=== PATIENT | female | born 1995 | race Caucasian/White ===

== ENCOUNTER 2018-04-25 20:49 | Inpatient (IN) ==
[2018-04-26 00:27] LABS: BASO# 0.05 X1000 (0.0-0.2); BASO% 0.5 % (0.0-0.8); EOS# 0.21 X1000 (0.0-0.7); EOS% 2.1 % (0.0-10.0); HEMATOCRIT 37.2 % (37.0-47.0); HEMOGLOBIN 12.1 g/dL (12.0-16.0); IMM GRAN# 0.02 X1000 (0.0-0.04); IMM GRAN% 0.2 % (0.0-0.5); LYMPH# 3.38 X1000 (1.2-3.4); MCH 27.7 PG (27-31); MCHC 32.5 g/dL (33-37); MCV 85.1 FL (81-99); MONO# 0.42 X1000 (0.11-0.59); MONO% 4.2 % (1.7-9.3); MPV 8.7 FL (7.4-10.4); NEUT# 5.86 X1000 (1.4-6.5); PLT 336 X1000 (130-400); RBC 4.37 XMIL (4.2-5.4); RDW 14.1 % (11.5-14.5); WBC 9.94 X1000 (4.8-10.8)
[2018-04-26 00:31] LABS: INR 0.9; PROTIME 12.9 Seconds (11.0-16.0)
[2018-04-26 00:32] LABS: PTT 29.1 Seconds (22.3-41.8)
[2018-04-26 00:41] LABS: AGAP 13; ALB/GLOB RATIO 2.1; ALBUMIN 4.6 g/dL (3.5-5.0); ALKALINE PHOSPHATASE 57 U/L (32-104); BUN 17 mg/dL (8-22); CALCIUM 9.5 mg/dL (8.8-10.2); CHLORIDE 105 mmol/L (98-107); COSMO 286; CREATININE 0.8 mg/dL (0.5-0.9); ESTIMATED GFR > 60; GLUCOSE 84 mg/dL (70-104); GOT 20 U/L (10-30); GPT 27 U/L (10-36); POTASSIUM 3.8 mmol/L (3.5-5.1); SODIUM 143 mmol/L (136-145); TCO2 25 mmol/L (25-35); TOTAL PROTEIN 6.8 g/dL (6.3-8.3)
--- NOTE | 2018-04-26 01:39 | PROVIDER DOCUMENTATION ---
This chart was entered by Erma Ruano Scribe, acting as scribe for Rodríguez Chen MD. HPI-Abdominal Pain/GI Problem - General Source: patient - History of Present Illness-ABD Nature of Presenting Problems: Pt is 22/F presenting to ED w/ abd pain. She has swallowed 3 foreign objects this week. On Thursday she swallowed a metal bracelet, on Thursday she swallowed 2 batteries. She has not passed them as of today. She has been to the ED at [facility] and was told to use magnesium citrate. She has had several bowel movements w/ no passing of the objects. Pt has hx of bipolar and personality disorder. Lives in half-way. Abdominal Pain Onset Location: reports: generalized abdomen Pain Radiation: reports: no radiation Quality of Pain: reports: aching Severity in ED: reports: moderate Onset/Duration: reports: 1 week ago Timing: reports: still present, getting worse Activities at Onset: reports: none Exposure to sick contacts?: No Modifying Factors: improves with: nothing Associated Symptoms: denies: diarrhea, nausea, syncope, vomiting Last BM: this morning Dark Stools Present?: reports: none noticed Rectal Bleeding: reports: none <Rodríguez Chen - Last Filed: 04/26/18 01:39> <Prashanth Gregg - Last Filed: 04/26/18 04:55> - General Chief Complaint: Foreign Body Stated Complaint: SWALLOWED FOREIGN OBJECTS 1 WK AGO. Time Seen by Provider: 04/25/18 22:39 Allergies/Adverse Reactions: Patient Allergies Allergy/AdvReac Type Severity Reaction Status Date / Time No Known Allergies Allergy Verified 04/22/18 17:01 Home Medications: Home Medication List Medication Instructions Recorded Confirmed Last Taken Type Clonidine HCl 0.1 mg PO DAILY #0 09/20/15 03/07/18 06/26/16 Rx Clonidine HCl 0.2 mg PO HS #0 09/20/15 03/07/18 06/26/16 Rx Metformin HCl 500 mg PO BID #0 09/20/15 03/07/18 06/26/16 Rx Blackwell Carbonate 1 tab PO BID 06/26/16 03/07/18 06/26/16 History Sertraline [Zoloft] 150 mg PO DAILY 06/26/16 03/07/18 06/26/16 History ATORVAstatin [Lipitor] 10 mg PO HS 06/30/17 03/07/18 Unknown History Oxcarbazepine 300 mg PO TID 06/30/17 03/07/18 Unknown History Trazodone [Desyrel] 300 mg PO HS 06/30/17 03/07/18 Unknown History Aripiprazole Lauroxil [Aristada] 662 mg IM DIRECTED 12/29/17 03/07/18 Unknown History Cholecalciferol (Vitamin D3) 5,000 units PO DAILY 12/29/17 03/07/18 Unknown History [Vitamin D3] Medroxyprogesterone Acetate 150 mg IM DIRECTED 12/29/17 03/07/18 Unknown History [Depo-Provera] Sulfamethoxazole/Trimethoprim 1 each PO BID #10 tablet 04/10/18 Unknown Rx [Bactrim Ds Tablet] Docusate Sodium [Colace] 100 mg PO DAILY #30 cap 04/22/18 Unknown Rx Magnesium Citrate [Citrate of 300 ml PO ONCE #1 bottle 04/22/18 Unknown Rx Magnesia] Review of Systems - Adult - REVIEW OF SYSTEMS - ADULT Constitutional: reports: no symptoms reported. denies: chills, fever Eyes: reports: no symptoms reported Ears, Nose, Mouth & Throat: reports: no symptoms reported Cardiovascular: reports: no symptoms reported Respiratory: reports: no symptoms reported Gastrointestinal: reports: abdominal pain. denies: diarrhea, nausea, vomiting Genitourinary: reports: no symptoms reported Musculoskeletal: reports: no symptoms reported Integumentary: reports: no symptoms reported Neurological: reports: no symptoms reported. denies: dizziness/vertigo, headache/migraines Psychiatric: reports: emotional problems, other (bipolar and personality disorders) Endocrine: reports: no symptoms reported Hematologic/Lymphatic: reports: no symptoms reported Allergic/Immunologic: reports: no symptoms reported All Other Systems: Reviewed and Negative <Rodríguez Chen - Last Filed: 04/26/18 01:39> Past History - Adult - PAST MEDICAL HISTORY-ADULT Review of Records: reports: Old Records Reviewed, Nursing Assessment Review, Medications Reviewed, Social history reviewed & non-contributory. Major Childhood Illnesses: reports: denies history Cardiovascular: reports: denies history Respiratory: reports: denies history Gastrointestinal: reports: denies history Obstetrical/Gynecological: reports: other (PCOS) Genitourinary: reports: denies history Musculoskeletal: reports: denies history Neurological: reports: Seizures/Epilepsy Psychiatric: reports: psychiatric problems Endocrine/Immune: reports: denies history, other (PKD) Other Conditions: reports: denies history - PRIOR SURGERIES/PROCEDURES Surgical/Procedure History: reports: other (polycystic) - IMMUNIZATION STATUS Childhood Immunizations: See Nurse Assessment Flu Vaccine: See Nurse Assessment - FAMILY HISTORY Family History: reviewed, not pertinent - SOCIAL HISTORY Smoking: denies, non-smoker Substance Use: none/never Alcohol Use Frequency: never Living Situation: group <Rodríguez Chen. - Last Filed: 04/26/18 01:39> Physical Exam-General - PHYSICAL EXAM-ADULT Initial Vital Signs Reviewed: Yes - CONSTITUTIONAL General Appearance: appears well, alert, mild distress - EYES Eyes: PERRL/EOMI - HEAD, EARS, NOSE, MOUTH & THROAT HENMT: normocephalic/atraumatic, moist mucous membranes - NECK Neck: non-tender, full range of motion, supple, normal inspection - RESPIRATORY Respiratory: chest non-tender, lungs clear, normal breath sounds - CARDIOVASCULAR Cardiovascular: regular rate, rhythm - GASTROINTESTINAL (ABDOMEN) Abdominal Exam: normal bowel sounds, soft, tenderness (mild diffuse) - LYMPHATIC Lymphatic: no adenopathy - MUSCULOSKELETAL Extremity: normal range of motion, non-tender, normal gait - SKIN Integumentary: normal color, warm/dry - NEUROLOGIC Neurologic: grossly normal <Roel Chenatilio Oliver. - Last Filed: 04/26/18 01:39> Progress - PLAN OF CARE/RESULTS Progress/Plan/Lab Results: Vital Signs - 8 hr 04/25/18 20:52 04/25/18 22:50 Temperature 98.1 F Pulse Rate 96 H 85 Respiratory Rate 18 20 Blood Pressure 131/79 111/76 O2 Sat by Pulse Oximetry 98 97 Orders Category Date Time Status KUB ABDOMEN [RAD] Stat Exams 04/25/18 22:58 Taken CBC WITH ELECTRONIC DIFF [HEME] Stat Lab 04/25/18 23:09 Uncollected COMPREHENSIVE METABOLIC PANEL [CHEM] Stat Lab 04/25/18 23:09 Uncollected LACTATE, PLASMA [CHEM] Stat Lab 04/25/18 23:09 Uncollected PT [PROTIME WITH INR] [COAG] Stat Lab 04/25/18 23:09 Uncollected PTT [COAG] Stat Lab 04/25/18 23:09 Uncollected Result Diagrams: 04/26/18 00:05 04/26/18 00:05 - XRAY 1 XRAY Study: Abdomen Impression: Abnormal (radio opacity suggestive of 1 battery and bracelet in place; second battery no longer present as compared to latest xray) Comparison with other Films: changes noted - CONSULTS/PCP/HOSPITALIST Notification #1 *Consult/PCP/Hospitalist*: Dr. Rubio Time Discussed: 01:00 Consult Disposition: other (do ct of abdomen with IV and oral contrast) - CHANGE OF SHIFT REPORT (ED Provider) Report Given and Care Transferred to:: Dr. Gregg Time of Transfer: 02:00 Items Pending: CT/MRI Results (discuss results with Dr. Rubio) <Rodríguez Chen - Last Filed: 04/26/18 01:39> - PLAN OF CARE/RESULTS Progress/Plan/Lab Results: Vital Signs - 8 hr 04/25/18 22:50 04/26/18 00:37 04/26/18 02:27 Temperature 98.1 F Pulse Rate 85 88 86 Respiratory Rate 20 16 18 Blood Pressure 111/76 109/60 109/60 O2 Sat by Pulse Oximetry 97 96 94 L Laboratory Results - last 24 hr 04/26/18 04/26/18 04/26/18 00:05 00:05 00:05 WBC 9.94 RBC 4.37 Hgb 12.1 Hct 37.2 MCV 85.1 MCH 27.7 MCHC 32.5 L RDW Std Deviation 14.1 Plt Count 336 MPV 8.7 Immature Gran % (Auto) 0.2 Neut % (Auto) 59.0 Lymph % (Auto) 34.0 [place] % (Auto) 4.2 Eos % (Auto) 2.1 Baso % (Auto) 0.5 Immature Gran # (Auto) 0.02 Neut # (Auto) 5.86 Lymph # (Auto) 3.38 [place] # (Auto) 0.42 Eos # (Auto) 0.21 Baso # (Auto) 0.05 PT INR PTT (Actin FS) Sodium 143 Potassium 3.8 Chloride 105 Carbon Dioxide 25 Anion Gap 13 BUN 17 Creatinine 0.8 Estimated GFR/1.73 m2 > 60 BUN/Creatinine Ratio 21 Glucose 84 Calculated Osmolality 286 Calcium 9.5 Total Bilirubin 0.20 AST 20 ALT 27 Alkaline Phosphatase 57 Total Protein 6.8 Albumin 4.6 Globulin 2.2 Albumin/Globulin Ratio 2.1 Plasma Lactate 2.0 Serum , Qual 04/26/18 04/26/18 00:05 00:05 WBC RBC Hgb Hct MCV MCH MCHC RDW Std Deviation Plt Count MPV Immature Gran % (Auto) Neut % (Auto) Lymph % (Auto) [place] % (Auto) Eos % (Auto) Baso % (Auto) Immature Gran # (Auto) Neut # (Auto) Lymph # (Auto) [place] # (Auto) Eos # (Auto) Baso # (Auto) PT 12.9 INR 0.90 PTT (Actin FS) 29.1 Sodium Potassium Chloride Carbon Dioxide Anion Gap BUN Creatinine Estimated GFR/1.73 m2 BUN/Creatinine Ratio Glucose Calculated Osmolality Calcium Total Bilirubin AST ALT Alkaline Phosphatase Total Protein Albumin Globulin Albumin/Globulin Ratio Plasma Lactate Serum , Qual NEGATIVE Orders Category Date Time Status CT ABD/PELVIS W/PO AND IV CON [CT] Stat Exams 04/26/18 00:50 Taken KUB ABDOMEN [RAD] Stat Exams 04/25/18 22:58 Taken CBC WITH ELECTRONIC DIFF [HEME] Stat Lab 04/26/18 00:05 Completed COMPREHENSIVE METABOLIC PANEL [CHEM] Stat Lab 04/26/18 00:05 Completed LACTATE, PLASMA [CHEM] Stat Lab 04/26/18 00:05 Completed TEST-SERUM [PREG] Stat Lab 04/26/18 00:05 Completed PT [PROTIME WITH INR] [COAG] Stat Lab 04/26/18 00:05 Completed PTT [COAG] Stat Lab 04/26/18 00:05 Completed Result Diagrams: 04/26/18 00:05 04/26/18 00:05 - CT/MRI 1 CT Study: Abdomen Impression: Abnormal CT Results: Battery and chain noted in bowel. No other acute finding. - CONSULTS/PCP/HOSPITALIST Notification #2 Consult: Dr Rubio Time Discussed: 04:54 Reason/Comments: asked hospitalist to admit Consult Disposition: Admit #3 Consult: Dr Rodney Hull Discussed: 04:54 Consult Disposition: Will see in ED, Admit <Prashanth Gregg - Last Filed: 04/26/18 04:55> Departure <Rodríguez Chen - Last Filed: 04/26/18 01:39> - Departure Date of Disposition Decision: 04/26/18 Time of Disposition Decision: 04:54 Certified Medical Emergency: Emergent - Critical Care Note This patient required my direct & personal management of CC.: No <Prashanth Gregg - Last Filed: 04/26/18 04:55> - Departure DIAGNOSIS: Foreign body alimentary tract, Foreign body ingestion, Intentional ingestion of batteries Disposition: ADMITTED INPATIENT 09 Condition: Fair Referrals and Follow-Ups: Ivet Contreras CRNP [Primary Care Provider] - Attestation - Physician/ KENDRICK Attestation Patient care was provided by Advanced Practice Provider:: No The physician spent face to face time with patient:: Yes Advanced Practice Provider documentation review:: Supervising physician onsite and consulted in the evaluation and care of this patient. The physician did have a face to face encounter with the patient. <Rodríguez Chen - Last Filed: 04/26/18 01:39> - Physician/ KENDRICK Attestation Patient care was provided by Advanced Practice Provider:: No The physician spent face to face time with patient:: Yes Advanced Practice Provider documentation review:: Supervising physician onsite and consulted in the evaluation and care of this patient. The physician did have a face to face encounter with the patient. <Prashanth Gregg - Last Filed: 04/26/18 04:55> This chart was documented by the indicated scribe, (Erma Ruano Scribe) and accurately reflects the services I performed and decisions made by Gustavo gould Kofi X., MD, as attested by the provider's signature.
[2018-04-26] MEDS ORDERED: ZOFRAN IV PRN (05:50)
[2018-04-26] MEDS ORDERED: SODIUM CHLORIDE 0.9% INJ SCH (05:50)
--- NOTE | 2018-04-26 05:56 | HISTORY AND PHYSICAL ---
PRIMARY CARE PROVIDER: Ivet Contreras. CHIEF COMPLAINT: Swallowed batteries. HISTORY OF PRESENTING ILLNESS: A 22-year-old female with a history of bipolar disorder, hypertension, and polycystic ovarian syndrome who apparently lives at a retirement. States that she got upset with some things and then she decided to swallow batteries and a bracelet or so. She states that she was not suicidal. She just got impulsive and did these things. She states that this occurred about 5 days ago and she did not recall that she passed the batteries in her stools. Her case was discussed with general surgery who recommended the patient be admitted for further evaluation and management. At the time of my examination, she complained of abdominal pain but denied any headache, fever, chills, chest pain, shortness of breath, or any weight changes. PAST MEDICAL HISTORY: Includes hypertension, polycystic ovarian syndrome, bipolar disorder. PAST SURGICAL HISTORY: None. ALLERGIES: No known drug allergies. CURRENT MEDICATIONS: Include atorvastatin 10 mg p.o. daily, sertraline 40 mg p.o. daily, lithium 300 mg p.o. b.i.d., clonidine 0.1 mg p.o. daily, trazodone 100 mg p.o. daily, SOCIAL HISTORY: She denies any history of smoking, alcohol, or illicit drug use. FAMILY HISTORY: No history of coronary artery disease. REVIEW OF SYSTEMS: Fourteen point review of systems listed as in the HPI. Other systems negative. PHYSICAL EXAMINATION: GENERAL: Cooperative, friendly female. She is resting comfortably now. VITAL SIGNS: Temperature 98.1 degrees, pulse 88, respirations 16, blood pressure 109/60. HEENT: Atraumatic, normocephalic. Extraocular movements intact. PERRLA. NECK: No masses. CHEST: Clear to auscultation. CARDIOVASCULAR: Regular rate and rhythm. ABDOMEN: Soft. Diffuse tenderness. EXTREMITIES: No edema. NEUROLOGIC: She is awake, alert, oriented x3. : No bladder distention. SKIN: Warm. LABORATORIES AND STUDIES: WBCs 9.94, hemoglobin 12.1, hematocrit 37.2, platelets 336,000. Sodium 143, potassium 3.8, chloride 105, CO2 is 25, BUN is 17, creatinine 0.8, glucose is 84. ASSESSMENT: This is a 22-year-old female with a history of bipolar disorder and hypertension who apparently got upset with some issues at her retirement and swallowed some batteries and a bracelet or so. She was evaluated in the emergency department. The case was discussed with general surgery who recommended she be admitted for further management. 1. Foreign body ingestion. 2. Bipolar disorder. 3. Hypertension. 4. Hyperlipidemia. PLAN: 1. We will admit the patient to the medical floor with telemetry. 2. We will keep the patient NPO. 3. We will consult general surgery. 4. We will continue supportive treatment with gentle hydration and antiemetics as needed. 5. One she is stable, we will restart her home medications. 6. We will continue to follow and reassess, and make further recommendation based on patient's clinical course. cc: Car Stevens MD MTDD
--- NOTE | 2018-04-26 06:39 | Diag Imaging Result Doc PS360 ---
CT ABD/PELVIS W/PO AND IV CON - 04/26/2018 INDICATION: abdominal pain; foreign body ingestion COMPARISON: 04/10/2018 FINDINGS: The lung bases are clear and the heart size is normal. Stable polycystic kidneys. There is a new radiodense object in the region of the cecum. This appears to be a battery. This measures about 4 cm in length. There is also an irregular metallic object in the cecum as well. This is probably something like a metallic chain. This measures about 4 cm as well. No bowel obstruction or free air. Trace pelvic free fluid is stable from prior. IMPRESSION: There are two new radiodense ingested foreign bodies in the cecum. No obstruction or perforation. This exam was performed using automated exposure control, adjustment of mA or kV according to patient size, and/or use of iterative reconstruction technique Electronically signed by Anthony Houser 04/26/2018 6:37 AM
[2018-04-26] MEDS: PROTONIX IV SCH (06:45)
[2018-04-26] MEDS: NS 1,000 ML IV SCH ×3 (06:48→22:30)
--- NOTE | 2018-04-26 07:55 | Diag Imaging Result Doc PS360 ---
EXAM: KUB ABDOMEN HISTORY: abominal pain; foreign body ingestion follow up TECHNIQUE: Abdomen single view COMPARISON: 04/22/2018 FINDINGS: There are two foreign bodies overlying the right lower quadrant. appears to be a neck less and the other may be a battery. These are likely in the cecum and ascending colon. Previously there was a foreign body in the mid left abdomen. This one is no longer present. IMPRESSION: Two foreign bodies remain in the proximal colon. Electronically signed by Dick Sebastian 04/26/2018 7:53 AM
[2018-04-26] MEDS: MIRALAX PO SCH ×3 (10:58→20:20)
--- NOTE | 2018-04-26 12:11 | GASTROENTEROLOGY CONSULTATION ---
DATE: 04/26/2018 REFERRING PHYSICIAN: Dr. Alex Fernández. PRIMARY CARE NURSE PRACTITIONER: BRADY James REASON FOR CONSULTATION: Swallowed batteries. HISTORY: Ms. Bah is a 22-year-old female who was admitted on 04/25/2018 for history of swallowing batteries. According to the patient, she swallowed 2 AA batteries and a necklace last Thursday and Thursday. She has history of bipolar disorder, hypertension, polycystic ovarian disease. On admission, she had a CT scan done which showed evidence of retained foreign body in the cecum. No obstruction or perforation noted. The patient does have history of constipation. She did notice passing one of the batteries in her bowels. Gastroenterology consulted for further management. PAST MEDICAL HISTORY: Bipolar disorder, hypertension, polycystic ovarian syndrome. PAST SURGICAL HISTORY: None. ALLERGIES: No known drug allergies. MEDICATIONS IN THE HOSPITAL: 1. Normal saline 100 mL/hour. 2. Zofran. 3. Protonix once daily. 4. MiraLAX 3 times daily. 5. Clear liquid diet. REVIEW OF SYSTEMS: She denies any current fevers, rigors, chills, chest pain, shortness of breath, dyspnea. She denies any vomiting blood or passing blood in the stools. She does complain of abdominal soreness and bloating. She does have a history of intermittent constipation. She denies any neurologic complaints. PHYSICAL EXAMINATION: Vital Signs: Temperature of 97.7, pulse rate of 75, respiratory rate 16, blood pressure 114/61, saturating 92% on room air. Body weight of 181 pounds 12 ounces. BMI of 36 kg/m. General: Obese, lying in bed in no acute distress. HEENT: No pallor. No icterus. Pupils equal, reactive to light. Neck: Supple. Abdomen: Soft. Discomfort in the periumbilical region. No rebound or guarding. Extremities: No cyanosis, clubbing, edema. Neurologic : She is alert, awake, oriented x3. LABORATORY DATA: Hemoglobin and hematocrit is 12.1 and 37.2. White count 9.94. Platelet count of 336,000. PT of 12.9, INR 0.9, PTT of 29.1. Sodium 140, potassium 3.8, chloride 105, bicarb 25, anion gap 13. BUN of 17, creatinine 0.8, glucose of 84, calcium 9.5, total bilirubin is 0.2. AST 20, ALT 27. Alkaline phosphatase 57, total protein 6.2, albumin of 4.6, test is negative. CT scan of the abdomen and pelvis as described in HPI. Abdominal x-ray showed 2 foreign bodies remain in the proximal colon. IMPRESSION AND PLAN: 1. Foreign body ingestion. 2. Bipolar disorder. 3. Hypertension. 4. Hyperlipidemia. 5. Obesity. RECOMMENDATIONS: We will keep her on a clear liquid diet. We will start her on MiraLAX 17 g p.o. t.i.d. We will check a KUB today and tomorrow to ensure the passage of the foreign body. The patient was counseled about the dangers of swallowing foreign bodies including risks of perforation and requiring surgery. If there is a small chance of retention of the foreign body then we may have to do a colonoscopy to extract it. Will keep her on GI prophylaxis. We will follow along. The above plans discussed with the patient and the nursing staff and all questions answered. Please call us with any further questions. cc: MD Alex Jimenes MD Anna M. Dumas, CRNP MTDD
--- NOTE | 2018-04-26 14:09 | GENERAL SURGERY CONSULTATION ---
DATE: 04/26/2018 HISTORY OF PRESENT ILLNESS: This is a 22-year-old female who lives in a usp. Several days ago she swallowed 2 AA batteries and a necklace and she has been followed in the emergency department for passage of these. She has passed a battery, but she still has a residual battery and necklace in her colon, in the first portion. She has had some abdominal discomfort, but no vomiting. Bowel function has been normal, other than she does have a history of constipation. MEDICAL HISTORY: Bipolar, hypertension, polycystic ovarian syndrome. SURGICAL HISTORY: No abdominal operations. SOCIAL HISTORY: She lives in a usp, but otherwise denies tobacco, alcohol, or drugs. FAMILY HISTORY: Reviewed and noncontributory. MEDICATIONS: Negative for anticoagulants. PHYSICAL EXAMINATION: Vital signs: Temperature is 97.8 degrees, pulse 85, blood pressure 110/67, oxygen saturation is 98%. General: She is alert. HEENT: There is no scleral icterus. Neck: No cervical mass. Cardiovascular: Normal rate. Pulmonary: No increased work of breathing. Abdomen: Soft, nontender, nondistended. There is no peritonitis. Integument: Warm and dry. Lymphatic: No cervical, axillary, or inguinal adenopathy. Psychiatric: Somewhat agitated. Neurologic: No gross deficits. LABS: White count is 9, hematocrit 37, platelets 336,000. Creatinine 0.8. LFTs are normal. test negative. Lactate is normal. I reviewed her CT scan and the progression of her images over the last couple of days. ASSESSMENT AND PLAN: This is a 22-year-old female with cecal foreign body x2. I do not see evidence of perforation or obstruction related to this. Dr. Coronel has seen her. I agree with the initiation of stool softeners and a clear liquid diet and I anticipate she will pass these as they have made it through the ileocecal valve. We will follow her along but no plans for surgical intervention. I do agree that the next step would be a colonoscopy to retrieve these if they began to cause an issue. cc: Nadia Rubio MD
--- NOTE | 2018-04-26 14:35 | Diag Imaging Result Doc PS360 ---
KUB ABDOMEN - 04/26/2018 INDICATION: follow batteries through colon COMPARISON: CT from earlier 04/26/2018 FINDINGS: There is a stable battery and chain in the proximal colon. No obstruction or free air. IMPRESSION: Ingested foreign bodies in the proximal colon. Electronically signed by Anthony Houser 04/26/2018 2:33 PM
[2018-04-26] MEDS ORDERED: DEPO-PROVERA IM SCH (16:45)
--- NOTE | 2018-04-26 17:07 | PROGRESS NOTE ---
DATE: 04/26/2018 Ms. Bah is feeling good. She is requesting solid food. She had ingested a battery and she is on liquids at the present time. She remains afebrile. Temperature 97.8 degrees, pulse 85, respirations 20, blood pressure 110/67. Pupils are equal and round.Lungs: Clear in all lung mejia. Cardiovascular: Regular rhythm and rate without murmur or S3. Abdomen: Soft. Skin: Warm and dry. LAB: On admission white count 9940, hematocrit is 37, platelet count 336,000, sodium 143, potassium 3.8, chloride 105, BUN 17, creatinine 0.8. Pro time was 12.9, PTT is 29. Abdominal pelvic CT done yesterday there are 2 new radiodense ingested foreign bodies in the cecum. No obstruction or perforation. Followup abdominal x-ray this morning ingested foreign bodies in the proximal colon. ASSESSMENT AND PLAN: 1. Ingested foreign bodies. Will continue clear liquids. General surgery is following. This is a 22-year-old female no evidence of perforation. Will follow along, do another abdominal x- ray tomorrow. 2. History of hypertension. 3. Polycystic ovarian disease. 4. Bipolar disorder. 5. Review of orders, getting normal saline 100 mL an hour, on Protonix 40 mg q.24 hours, polyethylene glycol 17 g p.o. t.i.d., think we better get her on her medications so will put her on her lithium and Depo-Provera as needed. Note she also has diabetes so we will follow her blood sugars and will put her back on her clonidine and her vitamin D3. cc: Alex Fernández MD
--- NOTE | 2018-04-26 17:30 | PROGRESS NOTE ---
DATE: 04/26/2018 Ms. Bah is doing well. She has a little bit itching around where the INCOMPLETE REPORT -- DICTATION ENDS HERE. cc: Alex Fernández MD
[2018-04-26] MEDS: LITHIUM CARBONATE PO SCH (20:19)
[2018-04-26] MEDS: GLUCOPHAGE PO SCH (20:19)
[2018-04-26] MEDS: CATAPRES PO SCH (20:19)
[2018-04-26 21:00] LABS: URINE SOURCE CLEAN CATCH
[2018-04-26 21:05] LABS: BILIRUBIN URINE NEGATIVE (NEGATIVE); BLOOD URINE NEGATIVE (NEGATIVE); COLOR STRAW; GLUCOSE URINE NEGATIVE (NEGATIVE); KETONE URINE NEGATIVE (NEGATIVE); LEUKOCYTES URINE NEGATIVE (NEGATIVE); NITRITE URINE NEGATIVE (NEGATIVE); PROTEIN URINE NEGATIVE (NEGATIVE); SP GRAVITY URINE 1.002; TURBIDITY URINE CLEAR (CLEAR); UR EPITHELIAL CELLS <10 /HPF (<10); URINE BACTERIA NEGATIVE /HPF; URINE RBC TNTC /HPF (<10); URINE WBC <10 /HPF (<10); UROBILINOGEN URINE NORMAL (NORMAL)
[2018-04-27] MEDS: PROTONIX IV SCH (06:45)
--- NOTE | 2018-04-27 10:22 | Diag Imaging Result Doc PS360 ---
EXAM: KUB ABDOMEN 04/27/2018 HISTORY: Foreign body ingestion TECHNIQUE: Two views COMMENT: There is what appears to be a AA battery in the ascending colon. There is also what appears to be a length of change adjacent to this. Both were in the ascending colon at the time the previous study of 04/26/2018. The contrast medium which was present previously in the colon has also been evacuated. There is no evidence of organomegaly or mass. IMPRESSION: Foreign bodies in the ascending colon. Electronically signed by Ubaldo Guerin 04/27/2018 10:17 AM
[2018-04-27] MEDS: MIRALAX PO SCH ×3 (10:25→16:58)
[2018-04-27] MEDS: LITHIUM CARBONATE PO SCH ×2 (10:26→22:00)
[2018-04-27] MEDS: VITAMIN D PO SCH (10:26)
[2018-04-27] MEDS: CATAPRES PO SCH ×2 (10:26→22:00)
[2018-04-27] MEDS: GLUCOPHAGE PO SCH ×2 (10:26→16:59)
[2018-04-27] MEDS: NS 1,000 ML IV SCH ×2 (13:09→22:00)
--- NOTE | 2018-04-27 13:51 | PROGRESS NOTE ---
DATE: 04/27/2018 SUBJECTIVE: This morning, Ms. Bah refers to be doing fairly okay. She has had a bowel movement, but has not passed any of the foreign body. A sitter was at the bedside at the time of the encounter. OBJECTIVE: Vital signs: Blood pressure is 106/59, pulse is 81, respirations 20 , temperature is 97.9 degrees. General: Ms. Bah is a 22-year-old female. She is in bed. She is obese. BMI is 36. HEENT: Mucosa is pink and moist. Anicteric. Acyanotic. Neck: Supple. Chest: Clear to auscultation. Cardiovascular: Regular rate and rhythm. Abdomen: Soft, nontender. Bowel sounds present. Extremities: No pedal edema. Central nervous system: Patient is awake, alert, and oriented. LABORATORY DATA: None for today. TSH is 6.95. DIAGNOSTIC STUDIES: A KUB this morning continues to show foreign bodies in the ascending colon. ASSESSMENT: 1. Ingestion of foreign bodies. The patient is currently being seen by Surgery and Gastroenterology. She is on clear liquids. A KUB this morning continues to show foreign bodies in the ascending colon. We are going to give the patient another 24 hours of observation to see if she is able to pass them out. If not, Gastroenterology will re-evaluate and see if she will need any endoscopic exams for retrieval of the foreign bodies. 2. History of bipolar disorder with personality identity disorder, noted. 3. Polycystic ovarian disease, on medroxyprogesterone. 4. Hypertension, controlled. 5. Obesity. cc: Yifan Villegas MD MTDD
[2018-04-27] MEDS ORDERED: GOLYTELY PO ONE (18:00)
--- NOTE | 2018-04-27 18:36 | GASTROENTEROLOGY PROGRESS NOTE ---
DATE: 04/27/2018 SUBJECTIVE: No acute overnight events. No fevers, chest pain, SOB. +NBNB emesis, diffuse abdominal pain. Nonbloody BMx5. No foreign bodies expelled. Tolerating clears. OBJECTIVE: Vital Signs: T 97.8, HR 82, RR 18, BP 131/71, O2 sat 98% on RA GEN: awake, alert, NAD HEENT: Sclerae anicteric. Moist mucous membranes. Neck: No JVD. No lymphadenopathy Cardiac: Regular rate and rhythm, no murmurs. Lungs: CTAB, no wheezing or crackles Abdomen: soft,ND, NABS, no rebound or guarding, mild-mod TTP throughout Extremities: No clubbing, cyanosis or edema. Neurologic: Nonfocal Psychiatric:Normal affect. LABORATORY DATA: No labs today KUB today shows persistent foreign body in ascending colon ASSESSMENT AND PLAN: Ms. Chari Bah is a 22-year-old woman with BPD, HTN, obesity who presented with N/V, abdominal pain after ingestion of foreign bodies. Repeat imaging shows persistent batteries and neckless in the right colon. #Foreign bodies: failure to pass with supportive care - prep with 4L of golytely, NPO after MN - plan for colonoscopy tomorrow for FB removal - no peritonitis/obstruction on exam; surgery following, apprec recs #N/V: cont antiemetics prn #BPD: continue home meds #HTN: continue BP meds Will follow with you. Please call with questions or concerns WANDER
--- NOTE | 2018-04-27 18:56 | GENERAL SURGERY PROGRESS NOTE ---
DATE: 04/27/2018 SUBJECTIVE: No abdominal pain, no vomiting, passing gas but she has not had anything in the way of bowel movement. Temperature 97.8 degrees, pulse 82, blood pressure 131/71. General she is alert. Abdomen soft, nontender, nondistended. No new labs, I reviewed her KUB it shows the 2 foreign bodies remain in the right colon. ASSESSMENT AND PLAN: A 22-year-old female with ingested foreign bodies. She has passed 1 but has not passed other 2, there in the ascending colon. I do think she would probably benefit from attempted endoscopic removal if nothing else her bowel prep may help flush these out. I will defer to Dr. Coronel for this. I do advise against surgical removal at this juncture. cc: Nadia Rubio MD
--- NOTE | 2018-04-28 08:42 | Diag Imaging Result Doc PS360 ---
EXAM: KUB ABDOMEN HISTORY: SBO TECHNIQUE: Abdomen two views COMPARISON: 04/27/2018 FINDINGS: The two foreign bodies in the right lower quadrant are unchanged in position. No bowel obstruction. No organomegaly. No new foreign body. IMPRESSION: No interval change in the right lower quadrant far bodies. Electronically signed by Dick Sebastian 04/28/2018 8:40 AM
[2018-04-28] MEDS ORDERED: DIPRIVAN 1% ONE ×2 (09:09→09:38)
[2018-04-28] MEDS ORDERED: XYLOCAINE-MPF 2% ONE (09:10)
[2018-04-28] MEDS ORDERED: FENTANYL ONE (09:58)
[2018-04-28] MEDS: GLUCOPHAGE PO SCH (10:46)
[2018-04-28] MEDS: CATAPRES PO SCH (10:47)
[2018-04-28] MEDS: LITHIUM CARBONATE PO SCH (10:47)
[2018-04-28] MEDS: VITAMIN D PO SCH (10:48)
[2018-04-28] MEDS: MIRALAX PO SCH (10:48)
[2018-04-28 12:04] VITALS: BP 134/94
--- NOTE | 2018-04-28 12:09 | OPERATIVE NOTE ---
PROCEDURE DATE : 04/28/2018 PROCEDURE: Colonoscopy. PROVIDER: Lopez Cobos MD. INDICATIONS: Foreign body ingestion. MEDICATIONS: Monitored anesthesia care. DESCRIPTION OF PROCEDURE: Prior to the procedure, a history and physical was performed. The patient's medications and allergies were reviewed. The patient's tolerance to previous anesthesia was also reviewed. The risks and benefits of the procedure and the sedation options and risks were discussed with the patient. All questions were answered and informed consent was obtained. After reviewing the risks and benefits, the patient was deemed in satisfactory condition to undergo the procedure. The colonoscope was passed under direct visualization. Throughout the procedure, the patient's blood pressure, pulse, and oxygen saturations were monitored continuously. The colonoscope was introduced through the anus and advanced to the cecum, identified by the appendiceal orifice and ileocecal valve. The colonoscopy was accomplished without difficulty. The quality of the prep was adequate. The patient tolerated the procedure well. COMPLICATIONS: None. ESTIMATED BLOOD LOSS: None. FINDINGS: - A AA battery and metallic chain was found in the cecum. A Ellison net was used to successfully retrieve and remove both foreign bodies. - Colonoscopy was otherwise normal. IMPRESSION: - Foreign body. RECOMMENDATION: - Resume regular diet. - The patient is okay to be discharged from a GI perspective. - Will sign off. Please call with any questions or concerns. MTDD
--- NOTE | 2018-04-29 06:28 | DISCHARGE SUMMARY ---
ADMISSION DATE: 04/26/2018 DISCHARGE DATE: 04/28/2018 DISPOSITION: half-way. FOLLOWUP: 1. BRADY James. 2. Dr. Jose Antonio Coronel. 3. Andrew. Shivam Rubio. CONSULTATIONS: 1. GI was consulted. Patient was seen by Dr. Jose Antonio Coronel. Followed up by Dr. Lopez Cobos. 2. Surgery was consulted. Patient was seen by Dr. Rubio. INVASIVE PROCEDURES: Colonoscopy was done. Extraction of a AAA battery and a metallic chain was found in the cecum and retrieved. IMAGING STUDIES OF SIGNIFICANCE: CT scan of the abdomen and pelvis did show two new radiodense ingested foreign bodies in the cecum. Multiple KUBs were done which showed that the objects were still in the ascending colon. ADMISSION DIAGNOSES: 1. Foreign body injection. 2. Bipolar disorder. 3. Hypertension. 4. Dyslipidemia. DISCHARGE DIAGNOSES: 1. Ingestion of foreign bodies (AAA batteries and a metallic chain). Patient is status post colonoscopy with object retrieval. 2. History of bipolar disorder with personality identity disorder. 3. Polycystic ovarian disease. Patient is on medroxyprogesterone. 4. Hypertension, controlled. 5. Obesity. DISCHARGE MEDICATIONS: 1. Klonopin 0.1 p.o. daily. 2. Metformin 500 b.i.d. 3. [place] 300 p.o. b.i.d. 4. Zoloft 150 p.o. daily. 5. Oxcarbazepine 300 t.i.d. 6. Lipitor 10 mg p.o. at bedtime. 7. Trazodone 300 mg p.o. at bedtime. 8. Vitamin D. 9. Depo-Provera IM injection as directed. 10.MiraLAX 17 g p.o. t.i.d. PRESENTING COMPLAINT: "I swallowed batteries." HISTORY OF PRESENTING COMPLAINT: Ms. Bah is a 22-year-old, female with history of bipolar disorder and personality identity disorder, polycystic ovarian disease and hypertension. Patient lives in a [facility]. According to her, she became mad with the staff at the [facility] and she became impulsive and swallowed two batteries and then a chain. According to her, it appears she has passed one of the batteries out, however the other two objects were still remaining after multiple bowel movements. She was brought to the emergency department over here where she was evaluated and admitted for further medical care. HOSPITAL COURSE: Patient was admitted to the medical floor. She was evaluated by Surgery and GI. Initially, a gtne-zaw-oez observation approach was adapted. Multiple bowel regimen given, however followup KUBs continued to show that the foreign bodies were in the cecum. GI ultimately decided to do a colonoscopy. This was successfully done today. Extraction of the AAA battery and a metallic chain was done by Dr. Cobos. Patient tolerated the procedure very well. Postoperatively, she acted well. She did not have any abdominal pain. The patient was deemed safe for discharge. She is, therefore, being discharged in stable condition. All the discharge instructions were discussed with her and with the sitter at the bedside at time of encounter. Specifically, we stressed the need to use alternatives to control anger and temper instead of swallowing materials which could be extremely dangerous and risky for her health. DISCHARGE PHYSICAL EXAM: VITAL SIGNS: At the time of discharge, Ms. Pérezs blood pressure is 134/94, pulse 87, respirations 20, temperature 97.4 degrees Fahrenheit. Physical exam is completely unremarkable. TIME SPENT: 36 minutes. cc: MD Ivet Myers CRNP Manish Arora, MD R. Tyler Harney, MD
== END 2018-04-28 12:13 | disposition home or self-care (01) | DRG 395 ==
LOC: ED 20:49 → SUATTDRO 04-26 06:50 → 3N 04-26 06:50
PROVIDERS: ATTEND Internal Medicine
CPT/HCPCS: 74000; 74018; 74177; 80053; 81001; 83605; 84443; 84703; 85025; 85610; 85730; 96374; 99285; A9270; C9113; J2405; J3010; J7030; Q9967; S0164

== ENCOUNTER 2019-01-06 16:05 | Observation (INO) ==
--- NOTE | 2019-01-06 16:23 | PROVIDER DOCUMENTATION ---
HPI-General Adult - General Chief Complaint: Foreign Body Stated Complaint: RETURN / REVISIT Time Seen by Provider: 01/06/19 16:15 Source: patient Allergies/Adverse Reactions: Patient Allergies Allergy/AdvReac Type Severity Reaction Status Date / Time No Known Allergies Allergy Verified 01/04/19 23:22 Home Medications: Home Medication List Medication Instructions Recorded Confirmed Last Taken Type Clonidine HCl 0.1 mg PO DAILY #0 09/20/15 01/04/19 06/26/16 Rx ATORVAstatin [Lipitor] 10 mg PO HS 06/30/17 01/04/19 Unknown History Oxcarbazepine 300 mg PO TID 06/30/17 01/04/19 Unknown History Trazodone [Desyrel] 300 mg PO HS 06/30/17 01/04/19 Unknown History Cholecalciferol (Vitamin D3) 5,000 units PO DAILY 12/29/17 01/04/19 Unknown History [Vitamin D3] Olanzapine [Olanzapine Odt] 10 mg PO DAILY 12/30/18 01/04/19 Unknown History - History of Present Illness -Gen Adult Nature of Presenting Problems: Pt. is 23 yof that is MR and swallowed a battery two days ago. Pt. states she has not passed the battery. Pt. reports she had a BM yesterday but that she has not passed it. She states she thinks she is constipated. Location of Pain/Injury: reports: abdomen. denies: none, head, face, mouth, neck, chest, upper extremity, hand(s), back, pelvis, genitalia, lower extremity, feet, upper body, lower body, generalized, other Pain Radiation: reports: RUQ. denies: no radiation, arm(s), back, buttocks, chest, epigastric, feet, groin, jaw, flank (L), legs (lower), LLQ, LUQ, neck, periumbilical, flank (R), RLQ, shoulder(s), scapula, scrotal, sternal notch, suprapubic, legs (upper), urethral, vaginal, other Quality of Pain: reports: aching. denies: cramping, sharp, tightness Severity: reports: mild. denies: moderate, severe Onset/Duration: reports: gradual, 2 days ago Timing: reports: still present. denies: improving, intermittent, getting worse Context/Activities at Onset: reports: none. denies: light activity, moderate activity, vigorous activity, recent emotional stress, recent physical stress, recent trauma history, possible bad food, cold exposure, eating, out of country travel, rest, sleep, sexual activity, other Modifying Factors: improves with: nothing Associated Symptoms: reports: denies symptoms. denies: anxiety, arm pain, back/neck pain, chest pain, constipation, cough, diaphoresis, diarrhea, dizziness, EENT symptoms, fatigue, fever/chills, genitourinary problems, headaches, heartburn, joint pain, loss of appetite, malaise, muscle aches, sinus congestion/drainage, nausea, rash, seizure, shortness of breath, sensory/motor loss, pain with inspiration, swelling/mass in abdomen, syncope, vomiting, weakness, trouble walking, other Similar Symptoms Previously?: Yes Recently seen or treated by another doctor?: Yes Review of Systems - Adult - REVIEW OF SYSTEMS - ADULT Constitutional: reports: no symptoms reported Eyes: reports: no symptoms reported Ears, Nose, Mouth & Throat: reports: no symptoms reported Cardiovascular: reports: no symptoms reported Respiratory: reports: no symptoms reported Gastrointestinal: reports: see HPI, abdominal pain. denies: diarrhea, nausea, vomiting Genitourinary: reports: no symptoms reported Musculoskeletal: reports: no symptoms reported Integumentary: reports: no symptoms reported Neurological: reports: no symptoms reported Psychiatric: reports: no symptoms reported Past History - Adult - PAST MEDICAL HISTORY-ADULT Review of Records: reports: Old Records Reviewed, Nursing Assessment Review, Medications Reviewed, Social history reviewed & non-contributory. Major Childhood Illnesses: reports: denies history Cardiovascular: reports: denies history Respiratory: reports: denies history Gastrointestinal: reports: denies history Obstetrical/Gynecological: reports: other (PCOS) Genitourinary: reports: denies history Musculoskeletal: reports: denies history Neurological: reports: Seizures/Epilepsy Psychiatric: reports: psychiatric problems Endocrine/Immune: reports: denies history, other (PKD) Other Conditions: reports: denies history - PRIOR SURGERIES/PROCEDURES Surgical/Procedure History: reports: other (polycystic) - IMMUNIZATION STATUS Childhood Immunizations: See Nurse Assessment Flu Vaccine: See Nurse Assessment - FAMILY HISTORY Family History: reviewed, not pertinent - SOCIAL HISTORY Smoking: non-smoker Physical Exam-General - PHYSICAL EXAM-ADULT Initial Vital Signs Reviewed: Yes - CONSTITUTIONAL General Appearance: alert, mild distress, obese. negative: anxious, slow to respond, obtunded, combative - EYES Eyes: PERRL/EOMI, pink conjunctivae - HEAD, EARS, NOSE, MOUTH & THROAT HENMT: normocephalic/atraumatic, moist mucous membranes. negative: angioedema, frontal tenderness, maxillary tenderness - NECK Neck: non-tender, full range of motion, supple, normal inspection - RESPIRATORY Respiratory: lungs clear, normal breath sounds - CARDIOVASCULAR Cardiovascular: regular rate, rhythm, no JVD, tachycardia. negative: extra beats, friction rub, irregularly irregular - GASTROINTESTINAL (ABDOMEN) Abdominal Exam: soft, abnormal bowel sounds (hypoactive). negative: rebound, hernia, mass - LYMPHATIC Lymphatic: no adenopathy - MUSCULOSKELETAL Back Exam: normal inspection, no CVA tenderness, no vertebral tenderness Extremity: normal range of motion, non-tender, normal gait, normal inspection. negative: erythema, inflammation, swelling, tenderness Peripheral Pulses: radial (R): 2+, radial (L): 2+ - SKIN Integumentary: normal color, normal turgor, warm/dry. negative: cyanosis, jaundice, pallor, warm - NEUROLOGIC Neurologic: grossly normal, no motor/sensory deficits - PSYCHIATRIC Psych/Mental Status: normal mood/affect, normal thought content, normal thought process, oriented x 3. negative: anxious, paranoid, tearful Progress - PLAN OF CARE/RESULTS Progress/Plan/Lab Results: Vital Signs - 8 hr 01/06/19 16:09 Temperature 98 F Pulse Rate 132 H Respiratory Rate 18 Blood Pressure 151/81 O2 Sat by Pulse Oximetry 98 Orders Category Date Time Status FLAT/UPRIGHT ABD/1 VIEW CHEST [RAD] Stat Exams 01/06/19 16:15 Ordered Result Diagrams: 01/06/19 17:01 - XRAY 1 XRAY Study: Abdomen Impression: See EMR Report (EXAM: FLAT/UPRIGHT ABD/1 VIEW CHEST INDICATION: FB in abdomen TECHNIQUE: 4 views COMPARISON: 01/05/2019 FINDINGS: The ingested battery seen on the previous study is still present. It is probably still in the stomach as it layers in the fundus on supine images and drops to the antrum of the stomach on the upright images. There is no evidence of large volume free abdominal gas. There is no obstructive bowel pattern. The abdomen is stable, otherwise. There is no evidence of organomegaly. The lungs are grossly clear. There is no discrete pleural fluid collection or pneumothorax. The cardiomediastinal silhouette and central vasculature are grossly unremarkable. IMPRESSION: Ingested foreign body still present and is probably still in the lumen of the stomach as described. Electronically signed by Virgil Fernandez 01/06/2019 5:10 PM 01/06/19 1710 Interpreting Physician: Virgil Fernandez MD Dictated Date/Time: 01/06/19 1707 cc: Sancho Johnson; Ivet Contreras) - CONSULTS/PCP/HOSPITALIST Notification #1 *Consult/PCP/Hospitalist*: Dr. Wilson Time Discussed: 16:51 Reason/Comments: Consult Consult Disposition: Admit (Admit to hospitilist and he will come see at [place]) #2 Consult: DR WELLINGTON Time Discussed: 17:53 Consult Disposition: Admit (TO MAIN) - CHANGE OF SHIFT REPORT (ED Provider) 1 Report Given and Care Transferred to:: BRADY Jack Time of Transfer: 16:52 Items Pending: Labs Departure - Departure Date of Disposition Decision: 01/06/19 Time of Disposition Decision: 17:53 DIAGNOSIS: Foreign body ingestion Disposition: ADMITTED INPATIENT 09 Certified Medical Emergency: Emergent Condition: Stable Referrals and Follow-Ups: Ivet Contreras CRNP [Primary Care Provider] - - Critical Care Note This patient required my direct & personal management of CC.: No Attestation - Physician/ KENDRICK Attestation Patient care was provided by Advanced Practice Provider:: Yes Advanced Practice Provider:: Sancho Johnson Advanced Practice Provider documentation review:: The Mid-level provider documentation, treatment plan and medical decision making was reviewed by the physician who agrees with all treatment and medical decision making by the [facility]. The physician spent face to face time with patient:: No Advanced Practice Provider documentation review:: Supervising physician onsite and consulted in the evaluation and care of this patient. The physician did not have a face to face encounter with the patient.
--- NOTE | 2019-01-06 17:12 | Diag Imaging Result Doc PS360 ---
EXAM: FLAT/UPRIGHT ABD/1 VIEW CHEST INDICATION: FB in abdomen TECHNIQUE: 4 views COMPARISON: 01/05/2019 FINDINGS: The ingested battery seen on the previous study is still present. It is probably still in the stomach as it layers in the fundus on supine images and drops to the antrum of the stomach on the upright images. There is no evidence of large volume free abdominal gas. There is no obstructive bowel pattern. The abdomen is stable, otherwise. There is no evidence of organomegaly. The lungs are grossly clear. There is no discrete pleural fluid collection or pneumothorax. The cardiomediastinal silhouette and central vasculature are grossly unremarkable. IMPRESSION: Ingested foreign body still present and is probably still in the lumen of the stomach as described. Electronically signed by Virgil Fernandez 01/06/2019 5:10 PM
[2019-01-06 17:22] LABS: BASO# 0.03 X1000 (0.0-0.2); BASO% 0.4 % (0.0-0.8); EOS# 0.16 X1000 (0.0-0.7); EOS% 2.1 % (0.0-10.0); HEMATOCRIT 37.1 % (37.0-47.0); IMM GRAN# 0.01 X1000 (0.0-0.04); IMM GRAN% 0.1 % (0.0-0.5); LYMPH# 2.44 X1000 (1.2-3.4); LYMPH% 32.1 % (20.5-51.1); MCH 25.6 PG (27-31); MCHC 32.3 g/dL (33-37); MCV 79.1 FL (81-99); MONO# 0.68 X1000 (0.11-0.59); MPV 8.7 FL (7.4-10.4); NEUT# 4.27 X1000 (1.4-6.5); NEUT% 56.3 % (42.2-75.2); PLT 334 X1000 (130-400); RBC 4.69 XMIL (4.2-5.4); RDW 13.9 % (11.5-14.5); WBC 7.59 X1000 (4.8-10.8)
[2019-01-06 17:26] LABS: BILIRUBIN URINE NEGATIVE (NEGATIVE); BLOOD URINE NEGATIVE (NEGATIVE); CLARITY CLEAR (CLEAR); COLOR YELLOW; GLUCOSE URINE NEGATIVE (NEGATIVE); KETONE URINE TRACE mg/dL (NEGATIVE); LEUKOCYTES URINE 1+ (NEGATIVE); NITRITE URINE NEGATIVE (NEGATIVE); PROTEIN URINE NEGATIVE (NEGATIVE); UROBILINOGEN URINE NORMAL
[2019-01-06 17:36] LABS: URINE SOURCE CLEAN CATCH
[2019-01-06 17:39] LABS: URINE BACTERIA NEGATIVE /HFP; URINE EPITHELIAL CELLS <10 /HPF (<10); URINE RBC <10 /HPF (<10); URINE WBC <10 /HPF (<10)
[2019-01-06 17:56] LABS: AGAP 8; ALBUMIN 4.1 g/dL (3.5-5.0); ALKALINE PHOSPHATASE 64 U/L (32-104); BUN 15 mg/dL (8-22); CALCIUM 9.6 mg/dL (8.8-10.2); CHLORIDE 106 mmol/L (98-107); COSMO 282; CREATININE 0.7 mg/dL (0.5-0.9); ESTIMATED GFR > 60; GLUCOSE 170 mg/dL (70-104); GOT 62 U/L (10-30); GPT 97 U/L (10-36); POTASSIUM 3.8 mmol/L (3.5-5.1); SODIUM 139 mmol/L (136-145); TCO2 25 mmol/L (25-35); TOTAL PROTEIN 6.7 g/dL (6.3-8.3)
[2019-01-06] MEDS ORDERED: NS 1,000 ML IV ONE (18:12)
--- NOTE | 2019-01-06 18:26 | Diag Imaging Result Doc PS360 ---
EXAM: CT ABDOMEN/PELVIS W/O CONTRAST INDICATION: FB in bowel TECHNIQUE: This exam was performed using automated exposure control, adjustment of mA or kV according to patient size, and/or use of iterative reconstruction technique. COMPARISON: 04/26/2018 FINDINGS: There is a stable small cyst associated with the right hepatic lobe near the dome of the liver. There is mild hepatic steatosis. The gallbladder, spleen, pancreas, and adrenal glands are unremarkable. There are innumerable renal cysts bilaterally, many of which exhibit calcifications at their peripheries. This is also seen on the previous study and is consistent with autosomal dominant polycystic kidney disease. The urinary bladder is unremarkable. The reproductive tract is grossly unremarkable as imaged. There is an ingested battery in the lumen of the stomach that was also seen on plain radiograph. There is no bowel obstruction. The appendix is normal. There is no bowel wall thickening. The remainder of the GI tract is grossly unremarkable. No focal inflammatory changes, free abdominal gas, or free fluid is identified. IMPRESSION: 1.Ingested foreign body in the lumen of the stomach with no evidence of obstruction or perforation. 2.Autosomal dominant polycystic kidney disease. Electronically signed by Virgil Fernandez 01/06/2019 6:24 PM
[2019-01-06] MEDS ORDERED: DIPRIVAN 1% ONE (19:10)
[2019-01-06] MEDS ORDERED: XYLOCAINE-MPF 2% ONE (19:12)
[2019-01-06] MEDS ORDERED: ZOFRAN ONE (19:12)
--- NOTE | 2019-01-06 19:52 | ENDOSCOPY OPERATIVE NOTE ---
[facility] ENDOSCOPY OPERATIVE NOTE , EGD PROCEDURE REPORT PATIENT: Chari Bah ADMISSION DATE: 01/06/2019 MR#: [id number] : 1995 PROCEDURE DATE: 01/06/2019 SURGEON: Ba Leone MD STATUS: inpatient STERILE PROCESSING TECH: Malgorzata Xie and Jose De Jesus Gordon PREOPERATIVE DIAGNOSIS: The patient is a 23 yr old female here for an EGD due to foreign body remova l from stomach. PROCEDURE PERFORMED: EGD w/ fb removal MEDICATIONS: Per Anesthesia TOPICAL ANESTHETIC: none CONSENT: The patient understands the risks and benefits of the procedure and understands that these r isks include, but are not limited to: sedation, allergic reaction, infection, perforation and/or bleeding. Alternative means of evaluation and treatment include, among others: physical exam, x-rays, and/or surgical intervention. The patient elects to proceed with this endoscopic procedure. HISORY AND PHYSICAL: 01/06/2019 DESCRIPTION OF PROCEDURE: During intra-op preparation period all mechanical and medical equipment was checked for proper function. Hand hygiene and appropriate measures for infection prevention was taken. After the risks, benefits and alternatives of the procedure were thoroughly explained, Informed consent was verified, confirmed and timeout was successfully executed by the treatment team. The patient was anesthetized with topical anesthesia and the [id number] ([id number]) endoscope was introduced through the mouth and advanced to the second portion of the duoden um. Retroflexion was performed in the stomach and revealed no abnormalities. The gastroscope was then slowly withdraw n and removed. ESOPHAGUS: The mucosa of the esophagus appeared normal. STOMACH: The mucosa of the stomach appeared normal. Battery foreign body was found in the gastric f undus. Foreign body removal was performed via Ellison net. DUODENUM: The duodenal mucosa showed no abnormalities. SPECIMENS REMOVED: No ADVERSE EVENTS: There were no complications. POSTOPERATIVE DIAGNOSIS: 1. The mucosa of the esophagus appeared normal 2. The mucosa of the stomach appeared normal 3. Foreign body was found in the gastric fundus; foreign body removal was performed 4. The duodenal mucosa showed no abnormalities RECOMMENDATIONS: 1. Resume pre-procedure medications 2. Resume regular diet 3. Return to floor when standard parameters are met REPEAT EXAM: Ba Leone MD eSigned: Ba Leone MD 01/06/2019 7:51 PM cc: PATIENT NAME: Chari Bah MR#: [id number]
--- NOTE | 2019-01-06 20:09 | HISTORY AND PHYSICAL ---
CHIEF COMPLAINT: Ingestion of foreign body. HISTORY OF PRESENT ILLNESS: The patient is a very pleasant 23-year-old, resident of a local residential. She unfortunately swallowed a battery apparently 2 days ago, and represented to the ER today. She did have a bowel movement yesterday, but has not, to the residential's knowledge, passed the battery. ALLERGIES: No known drug allergies. MEDICATIONS: 1. Lipitor 10. 2. Oxcarbazepine 300 mg 3 times daily. 3. Desyrel 300. 4. Olanzapine 10. REVIEW OF SYSTEMS: Effectively unobtainable from Ms. Bah due to her intellectual impairment. The residential workers state that she has been in her usual state of health. She has no cough, congestion, or fevers. Has not really complained of any abdominal pain, nausea, or vomiting. She has had no diarrhea. Denies any GI or issues ultimately. Denies any change in her weight or any skin rashes. They do note that she [*] earlier yesterday and swallowed a battery, which she has been known to do in the past. PAST MEDICAL HISTORY: Significant for: 1. Polycystic kidney disease. 2. History of polycystic ovarian syndrome. 3. She has severe intellectual impairment. FAMILY HISTORY: Noncontributory. SOCIAL HISTORY: The patient does not smoke or drink. She is a resident of a residential. PHYSICAL EXAMINATION: VITAL SIGNS: Reviewed. GENERAL: She is awake, alert. She is in no respiratory distress, sitting up in the bed. She does not appear ill at all. She appears comfortable. HEENT: Normocephalic. NECK: Supple. CARDIOVASCULAR: Regular rate. CHEST: Clear. ABDOMEN: Soft, nontender. EXTREMITIES: Moves all extremities. ASSESSMENT: 1. Intentional ingestion of foreign body, battery, which is still located in her stomach by her CT earlier. 2. Polycystic kidney disease. 3. Intellectual impairment. PLAN: We are going to consult GI. Transfer her to [facility] for an esophagogastroduodenoscopy and hopefully removal of the foreign body. Further orders as needed after the esophagogastroduodenoscopy. cc: Nahid Alonzo MD
--- NOTE | 2019-01-06 20:12 | GENERAL SURGERY CONSULTATION ---
DATE: 01/06/2019 REQUESTING PHYSICIAN: Emergency Department. REASON FOR CONSULTATION: Concerning the ingestion of foreign body. HISTORY OF PRESENT ILLNESS: A 23-year-old female with underlying psychiatric history, history of bipolar disorder, who lives at a halfway. She apparently has previously ingested batteries, ingested one again a couple of days ago. She has been having abdominal pain in the right upper quadrant. She had an abdominal film which did not show any free air but shows the battery still in the stomach. She had been previously seen in the ER 2 days ago. She is being admitted to the hospitalist service across [facility]. I was asked to weigh an opinion. She is again not complaining of significant abdominal pain, but does have some, and she has passed gas and a bowel movement yesterday. PAST MEDICAL HISTORY: 1. Includes hypertension. 2. Polycystic ovarian syndrome. 3. Bipolar disorder. PAST SURGICAL HISTORY: Previous EGD for foreign body removal. ALLERGIES: None. CURRENT MEDICATIONS: Reviewed. SOCIAL HISTORY: Lives at a halfway. FAMILY HISTORY: Reviewed with the patient and noncontributory. REVIEW OF SYSTEMS: A full 14 systems was reviewed and negative except for those specified in HPI. PHYSICAL EXAMINATION: Vital signs: The patient is currently afebrile. She does have a recorded heart rate in the 130s, but her blood pressure is stable and she is afebrile. On general exam, no acute distress, sitting comfortably. female, looks stated age.HEENT: Normocephalic, atraumatic. Pupils equal, round and reactive to light. Mucous membranes moist. Oropharynx benign. Neck supple. Trachea midline. Cardiovascular: Some tachycardia. Lungs grossly clear. Abdomen soft, nondistended. No peritoneal signs. Some tenderness in the right side, but again no peritoneal signs. Extremities: Moves all extremities. Neurologic grossly intact. Skin: No signs of jaundice. Vascular: All extremities perfused. LABORATORY DATA: Reviewed and grossly normal. DIAGNOSTIC DATA: Abdominal film reviewed. ASSESSMENT AND PLAN: A 23-year-old female with ingestion of foreign body. Ingestion of foreign body. At this time it appears it could be in the stomach. Given her tachycardia, her abdominal pain and the foreign body, we will get a noncontrasted CT scan. If the foreign body is actually in her stomach, we will ask Gastroenterology to see her and remove it endoscopically. If it has progressed along, we will see what the remainder of the bowel looks like, but otherwise we will just let it pass if possible. We will continue to monitor. She is being transferred over. We will follow her closely. cc: Jorge Wilson MD
[2019-01-06] MEDS ORDERED: LIPITOR PO SCH (21:00)
[2019-01-06] MEDS ORDERED: DESYREL PO SCH (21:00)
[2019-01-06] MEDS: PERIDEX MT SCH (22:21)
--- NOTE | 2019-01-07 06:32 | GENERAL SURGERY PROGRESS NOTE ---
DATE: 01/07/2019 Patient underwent successful EGD with removal of foreign body. The CT scan showed a battery in the stomach. She seems to be resting fine without abdominal pain at this point. Will sign off and follow peripherally. cc: Jorge Wilson MD
[2019-01-07] MEDS ORDERED: CATAPRES PO SCH (09:00)
[2019-01-07] MEDS ORDERED: VITAMIN D PO SCH (09:00)
[2019-01-07] MEDS ORDERED: ZYPREXA ZYDIS PO SCH (09:00)
[2019-01-07] MEDS ORDERED: TRILEPTAL PO SCH (09:00)
[2019-01-07] MEDS: PERIDEX MT SCH (09:48)
[2019-01-07 11:26] VITALS: BP 136/74
--- NOTE | 2019-01-08 14:12 | DISCHARGE SUMMARY ---
ADMISSION DATE: 01/06/2019 DISCHARGE DATE: 01/07/2019 DISPOSITION: A a [facility]. FOLLOWUP: 1. Ms. Ivet Contreras. 2. Dr. Leone. CONSULTATION DURING THIS ADMISSION: 1. GI was consulted, patient was seen by Dr. Leone. 2. Surgery was also consulted, patient was seen by Dr. Wilson. INVASIVE PROCEDURE DONE DURING THIS ADMISSION: 1. EGD with foreign body removal was done by Dr. Leone. IMAGING STUDIES OF SIGNIFICANCE: 1. KUB showed ingested foreign body still present and probably still in the lumen of the stomach. 2. A CT scan of the abdomen and pelvis showed injected foreign body in the lumen of the stomach while no evidence of obstruction. Autosomal dominant polycystic kidney disease. ADMISSION DIAGNOSES: 1. Intentional ingestion of foreign body. 2. Polycystic kidney disease. 3. Intellectual impairment. DIAGNOSIS AT TIME OF DISCHARGE: 1. Intentional ingestion of foreign body (battery), this is about the 2nd time. 2. History of polycystic kidney disease. 3. Intellectual impairment. 4. Hypertension. 5. Obesity. 6. Bipolar disorder. MEDICATIONS AT TIME OF DISCHARGE: 1. Clonidine 0.1 p.o. daily. 2. 300 three times per day. 3. Atorvastatin 10 mg p.o. at bedtime. 4. Trazodone 300 mg p.o. at bedtime. 5. Cholecalciferol. 6. Olanzapine 10 mg p.o. daily.. PRESENTING COMPLAINT: Injection of foreign body. HISTORY OF PRESENTING COMPLAINT: Ms. Bah is a 23-year-old female who presented to the emergency department after she swallowed a battery about 2 days prior. The [facility]p thought that she had probably passed it, but they never saw it coming out, so they brought her for evaluation. Ms. Bah initially presented to [facility] where she was evaluated and was brought into [facility] for a higher level of care. HOSPITAL COURSE: Ms. Bah was seen immediately by both GI and Surgery. A decision was made to do an EGD and possibly retrieve the foreign body. This was subsequently done by Dr. Leone. The report of the EGD shows that in the stomach, the stomach mucosa appeared normal, but there was a battery foreign body found in the gastric fundus. This was removed via a [employer]. Postoperatively Ms. Bah continues to feel well. She was started on diet which she tolerated well. She was evaluated by Surgery and also communicated with Dr. Leone who, from his standpoint, Ms. Bah can be discharged. Ms. Bah is therefore being discharged back to the [facility]. The sitter who was at the bedside have been given all the instructions and also have been advised to keep an eye on Ms. Bah since this is about the 2nd time. According to the sitter, Ms. Bah is usually on 2 to 1 observation during the day and only 1 to 1 during the night. TIME SPENT: Time spent for discharge is 35 minutes. cc: MD Ivet Myers CRNP Khurshid Yousuf, MD Matthew L. Figh, MD MTDD
== END 2019-01-07 13:01 | disposition home or self-care (01) ==
LOC: 4N 16:05 → P.ED 16:05 → SUATTDRO 18:31
PROVIDERS: ATTEND Internal Medicine

== ENCOUNTER 2019-04-14 07:25 | Observation (INO) ==
[2019-04-14] MEDS ORDERED: PEPCID IV ONE (08:11)
[2019-04-14] MEDS ORDERED: BENADRYL IV ONE (08:11)
[2019-04-14] MEDS ORDERED: SODIUM CHLORIDE 0.9% INJ ONE (08:11)
[2019-04-14] MEDS ORDERED: SOLU-MEDROL IV ONE (08:11)
--- NOTE | 2019-04-14 08:25 | PROVIDER DOCUMENTATION ---
HPI-General Adult - General Chief Complaint: Allergic Reaction Stated Complaint: POSS ALLERGIC REACTION Time Seen by Provider: 04/14/19 07:27 Source: patient, other Allergies/Adverse Reactions: Patient Allergies Allergy/AdvReac Type Severity Reaction Status Date / Time No Known Allergies Allergy Verified 04/12/19 19:44 Home Medications: Home Medication List Medication Instructions Recorded Confirmed Last Taken Type Clonidine HCl 0.1 mg PO DAILY #0 09/20/15 01/07/19 06/26/16 Rx ATORVAstatin [Lipitor] 10 mg PO HS 06/30/17 01/07/19 Unknown History Oxcarbazepine 300 mg PO TID 06/30/17 01/07/19 Unknown History Trazodone [Desyrel] 300 mg PO HS 06/30/17 01/07/19 Unknown History Cholecalciferol (Vitamin D3) 5,000 units PO DAILY 12/29/17 01/07/19 Unknown History [Vitamin D3] Olanzapine [Olanzapine Odt] 10 mg PO DAILY 12/30/18 01/07/19 Unknown History Diphenhydramine [Benadryl] 25 mg PO Q4-6H PRN PRN #30 cap 04/12/19 Unknown Rx Famotidine [Pepcid] 20 mg PO DAILY #14 tab 04/12/19 Unknown Rx Prednisone 20 mg PO BID #6 tab 04/12/19 Unknown Rx - History of Present Illness -Gen Adult Nature of Presenting Problems: PT HERE A 2ND VISIT IN 2 DAYS . HERE 2 DAYS AGO WITH URTICARIA RASH OF TOROS AND EXTREMITIES. TOOK BACTRIM 5 DAYS AGO AND STOPPED BACTRIM PIOR LAST VISIT. ROUTINE MEDS (#9 ) REVIEW AND ARE LONGSTANDING. NOW ON PREDNISONE AND BENADRYL. TODAY WITH SWELLING FACE, RIGHT EYE AREA, LIPS AND TONGUE. NO GENERALIZED URTICARIA TODAY. NO STRIDOR OR RESP DISTRESS AT THIS TIME. HANDLING SECRETIONS. Review of Systems - Adult - REVIEW OF SYSTEMS - ADULT Constitutional: reports: no symptoms reported. denies: chills Eyes: reports: no symptoms reported Ears, Nose, Mouth & Throat: reports: no symptoms reported Cardiovascular: reports: no symptoms reported Respiratory: reports: no symptoms reported Gastrointestinal: reports: no symptoms reported Genitourinary: reports: no symptoms reported Musculoskeletal: reports: no symptoms reported Integumentary: reports: no symptoms reported Neurological: reports: no symptoms reported Psychiatric: reports: no symptoms reported Endocrine: reports: no symptoms reported Hematologic/Lymphatic: reports: no symptoms reported Allergic/Immunologic: reports: no symptoms reported All Other Systems: Reviewed and Negative Past History - Adult - PAST MEDICAL HISTORY-ADULT Review of Records: reports: Nursing Assessment Review, Medications Reviewed, Social history reviewed & non-contributory. Major Childhood Illnesses: reports: denies history Cardiovascular: reports: denies history Respiratory: reports: denies history Gastrointestinal: reports: denies history Obstetrical/Gynecological: reports: other (PCOS) Genitourinary: reports: denies history Musculoskeletal: reports: denies history Neurological: reports: Seizures/Epilepsy Psychiatric: reports: psychiatric problems Endocrine/Immune: reports: denies history, other (PKD) Other Conditions: reports: denies history - PRIOR SURGERIES/PROCEDURES Surgical/Procedure History: reports: other (polycystic) - IMMUNIZATION STATUS Childhood Immunizations: See Nurse Assessment Flu Vaccine: See Nurse Assessment - FAMILY HISTORY Family History: reviewed, not pertinent Physical Exam-General - PHYSICAL EXAM-ADULT Initial Vital Signs Reviewed: Yes (TACHY) - CONSTITUTIONAL General Appearance: appears well, alert - EYES Eyes: PERRL/EOMI - HEAD, EARS, NOSE, MOUTH & THROAT HENMT: moist mucous membranes, other (LIPS TONGUE AND RIGHT SOO-ORBITAL FACE ARE SWOLLEN. TONGUE IS MODERATE SIZE, EASY TO SEE POSTERIOR PHARYNX WITH A TONGUE-BLADE, NO REDNESS. LIPS MODERATELY SWOLLEN NO STRIDOR.) - NECK Neck: non-tender, full range of motion, supple - RESPIRATORY Respiratory: lungs clear, normal breath sounds, no respiratory distress, no accessory muscle use - CARDIOVASCULAR Cardiovascular: regular rate, rhythm, no JVD, no murmur - GASTROINTESTINAL (ABDOMEN) Abdominal Exam: non tender, soft - MUSCULOSKELETAL Extremity: normal range of motion, non-tender, normal gait, normal inspection - SKIN Integumentary: normal turgor, warm/dry, swelling (PINK NON-TENDER WELLING OF FACE, YVONNE RIGHT EYE) - NEUROLOGIC Neurologic: slate handler II-XII nml as tested, grossly normal, no motor/sensory deficits - PSYCHIATRIC Psych/Mental Status: normal mood/affect, normal thought content, normal thought process, oriented x 3 Progress - PLAN OF CARE/RESULTS Progress/Plan/Lab Results: Vital Signs - 8 hr 04/14/19 07:37 Temperature 98 F Pulse Rate 110 H Respiratory Rate 18 O2 Sat by Pulse Oximetry 97 Orders Category Date Time Status Diphenhydramine [Benadryl] Med 04/14/19 08:11 Discontinued 50 mg IV NOW ONE Famotidine [Pepcid] Med 04/14/19 08:11 Discontinued 20 mg IV NOW ONE Methylprednisolone Sod Succ [Solu-Medrol] Med 04/14/19 08:11 Discontinued 125 mg IV NOW ONE Sodium Chloride 0.9% Med 04/14/19 08:11 Discontinued 5 - 10 ml INJ NOW ONE - REASSESSMENT Reassessment #1 Time Reassessed: 09:13 Status: improving (OBSERVED HERE IN ER AFTER TX AND BEFORE SENT TO FLOOR, FACE AND TONGUE DEFINITELY LESS SWOLLN, LIPS STILL SWOLLEN. CONTINUES W/O STRIDOR OR RESP DISTRESS. RELEASE TO FLOOR.) - CONSULTS/PCP/HOSPITALIST Notification #1 *Consult/PCP/Hospitalist*: DR GUADALUPE Time Discussed: 08:20 Consult Disposition: Admit Departure - Departure Date of Disposition Decision: 04/14/19 Time of Disposition Decision: 09:12 DIAGNOSIS: [id number] Qualifiers: Encounter type: subsequent encounter Qualified Code(s): T78.3XXD - Angioneurotic edema, subsequent encounter Disposition: ADMITTED INPATIENT 09 Certified Medical Emergency: Emergent Condition: Fair Referrals and Follow-Ups: Ivet Contreras CRNP [Primary Care Provider] - - Critical Care Note This patient required my direct & personal management of CC.: No Attestation - Physician/ KENDRICK Attestation The physician spent face to face time with patient:: Yes Advanced Practice Provider documentation review:: Supervising physician onsite and consulted in the evaluation and care of this patient. The physician did have a face to face encounter with the patient.
[2019-04-14] MEDS ORDERED: ZOFRAN IV PRN (10:33)
[2019-04-14] MEDS ORDERED: BENADRYL IV PRN (10:42)
[2019-04-14 10:48] LABS: BASO# 0.01 X1000 (0.0-0.2); BASO% 0.1 % (0.0-0.8); EOS# 0.02 X1000 (0.0-0.7); EOS% 0.1 % (0.0-10.0); HEMATOCRIT 37.5 % (37.0-47.0); HEMOGLOBIN 11.9 g/dL (12.0-16.0); IMM GRAN# 0.05 X1000 (0.0-0.04); IMM GRAN% 0.4 % (0.0-0.5); LYMPH# 1.57 X1000 (1.2-3.4); LYMPH% 11.2 % (20.5-51.1); MCH 25.1 PG (27-31); MCHC 31.7 g/dL (33-37); MCV 79.1 FL (81-99); MONO# 0.45 X1000 (0.11-0.59); MONO% 3.2 % (1.7-9.3); MPV 8.8 FL (7.4-10.4); NEUT# 11.97 X1000 (1.4-6.5); PLT 345 X1000 (130-400); RBC 4.74 XMIL (4.2-5.4); WBC 14.07 X1000 (4.8-10.8)
[2019-04-14] MEDS ORDERED: SODIUM CHLORIDE 0.9% INJ SCH (11:00)
[2019-04-14] MEDS: NS 1,000 ML IV SCH ×2 (11:03→21:00)
[2019-04-14 11:04] LABS: AGAP 14; ALBUMIN 4.2 g/dL (3.5-5.0); ALKALINE PHOSPHATASE 77 U/L (32-104); BUN 13 mg/dL (8-22); CALCIUM 8.9 mg/dL (8.8-10.2); CHLORIDE 105 mmol/L (98-107); COSMO 286; CREATININE 0.6 mg/dL (0.5-0.9); ESTIMATED GFR > 60; GLUCOSE 157 mg/dL (70-104); GOT 17 U/L (10-30); GPT 30 U/L (10-36); MAGNESIUM 1.6 mg/dL (1.5-2.7); POTASSIUM 4.2 mmol/L (3.5-5.1); SODIUM 142 mmol/L (136-145); TCO2 23 mmol/L (25-35); TOTAL PROTEIN 7.2 g/dL (6.3-8.3)
[2019-04-14] MEDS ORDERED: BENADRYL PO PRN (12:08)
[2019-04-14] MEDS: HUMALOG (PARKWAY) SUBQ SCH ×3 (12:48→22:25)
[2019-04-14] MEDS: TRILEPTAL PO SCH ×2 (14:12→18:02)
--- NOTE | 2019-04-14 14:51 | HISTORY AND PHYSICAL ---
PRIMARY CARE PHYSICIAN: BRADY Alvarado. CHIEF COMPLAINT: Angioedema. HISTORY OF PRESENT ILLNESS: Ms. Bah is a 23-year-old, female, who presents today with past medical history of diabetes mellitus type 2, hyperlipidemia, hypertension, PCOS, borderline personality disorder with bipolar disease and major depressive disorder and PTSD, and lives at a local fci. The patient presents to the ER today, and states she woke up sometime this morning, having edema to the mouth, the right side of the face, including the eye, the tongue, the back of the throat. The patient was having difficulty swallowing and talking, and did not feel like eating, so she decided to come to the ER at that time. The patient was recently in the ER 2 days ago, and had a severe urticaria reaction to Bactrim. The patient was sent home on Medrol Dosepak, prednisone, Pepcid, and Benadryl. The group managing director stated that they did give her doses of those medicines this a.m. However, since she was having difficulty swallowing, they did decide to still bring her to the ER. The patient was on the Bactrim for a total of 7 days for a UTI, and has been off the medication for a total of 2 days. The patient does deny any cough, congestion, fever or chills, flu-like symptoms, excessive thirst, chest pain, palpitations, orthopnea, PND, leg edema, dyspnea, nausea, vomiting, hematemesis, melena, diarrhea, constipation, dysuria, hematuria, muscle pain or weakness, syncope, dizziness, numbness, vertigo, or any other pertinent symptoms at this time. REVIEW OF SYSTEMS: A 10-point review of systems has been obtained, and all are negative, except what is stated above in the HPI. PAST MEDICAL HISTORY: 1. Hyperlipidemia. 2. Diabetes mellitus type 2. 3. Hypertension. 4. PCOS. 5. Bipolar disorder. 6. PTSD. 7. Major depressive disorder. 8. Panic disorder. 9. Borderline personality disorder. PAST SURGICAL HISTORY: An EGD to remove batteries that were swallowed intentionally. FAMILY HISTORY: Noncontributory. SOCIAL HISTORY: The patient does live in a local fci for her mental disorders. She denies any smoking, alcohol, or illicit drug use. ALLERGIES: The patient now has an allergy to Bactrim and sulfa drugs. HOME MEDICATIONS: 1. Clonidine 0.1 mg p.o. daily. 2. Oxcarbazepine 300 mg p.o. t.i.d. 3. Atorvastatin 10 mg p.o. at bedtime. 4. Trazodone 300 mg p.o. at bedtime. 5. Vitamin D3, 5000 units p.o. daily. 6. Olanzapine ODT 10 mg p.o. daily. 7. Diphenhydramine 25 mg p.o. every 4 to 6 hours p.r.n. 8. Famotidine 20 mg p.o. daily. 9. Prednisone 20 mg p.o. b.i.d. 10. Depo-Provera 150 mg IM as directed. 11. Metformin 1000 mg p.o. daily. PHYSICAL EXAMINATION: VITAL SIGNS: Temperature 98.7 degrees, pulse rate 90, respiratory rate 19, blood pressure 121/89, O2 saturation 96% on room air. GENERAL: This is a 23-year-old, female. She is lying in the ER stretcher. She is well nourished and well developed. She is in no acute distress. HEENT: Atraumatic, normocephalic. Pupils are equal, round, reactive to light. Mucous membranes are moist. NECK: Supple. There is edema noted to the right side of the face. There is edema noted to the tongue region in the mouth. There is no lymphadenopathy. Trachea is midline. There is no JVD. CV: Regular rate and rhythm. No murmurs, gallops, or rubs appreciated. RESPIRATORY: Lung sounds are clear with equal chest excursion. Respirations are nonlabored. No accessory muscle usage. GI: Abdomen is soft. It is nontender, nondistended. Bowel sounds are present x4. The patient is mildly obese. : No CVA tenderness noted. The patient is voiding without difficulty. NEUROLOGIC: The patient is lethargic. She has received Benadryl in the ER. She is able to follow all my commands. She is able to answer my questions when I awaken her. There are no deficits noted. MUSCULOSKELETAL: Full distal strength noted. No abnormalities. No deformities. EXTREMITIES: No clubbing, no cyanosis. There is edema noted to the right side of the face in the mouth region, along the lips and in the tongue. DP and PT pulses are present and palpable. SKIN: Warm, dry, and intact. No rashes. No bruises. No diaphoresis. LABORATORY AND DIAGNOSTIC DATA: We are awaiting these results. They have been ordered. ASSESSMENT: 1. Angioedema. 2. Diabetes mellitus type 2. 3. Hypertension, chronic. 4. Hyperlipidemia, chronic. 5. Polycystic ovarian syndrome, chronic. 6. Bipolar disorder with borderline personality disorder and major depressive disorder. 7. Posttraumatic stress disorder. PLAN: We will admit this patient to the medical floor. She was given a dose of Solu-Medrol 125 mg IV in the ER. I did speak with the ER physician. He states that her edema has much improved. I have ordered her 40 mg of Solu-Medrol IV daily. She was also given Benadryl 50 mg IV 1 dose, and Pepcid 20 mg IV 1 dose. I have reordered her Benadryl 25 mg IV every 4 hours p.r.n., Pepcid 20 mg IV every 12 hours. I have ordered her IV fluids, 100 mL an hour. They did not obtain any labs in the ER. I am going to order her a CMP, a magnesium, a CBC with differential. I will order those for now. I will check those later, and replace those if needed. I will repeat her labs for in the morning. I have placed her on a clear liquid diet. If she is able to swallow, she can have this. The caregiver said she was able to swallow a little bit prior to coming to the hospital, and since her edema has improved, I figure she will be able to swallow a few liquids. We will advance diet as tolerated. She can have Zofran 4 mg IV every 4 hours if she has any nausea. I have placed her on fingersticks before meals and at bedtime. I have ordered her a low sliding scale. We are going to do vital signs every 8 hours. I placed her on child monitor, and all other further treatment pending hospital course and laboratory data. Dictated by BRADY Mitchell for Nahid Alonzo MD cc: MD Ivet Duong CRNP [facility]
[2019-04-14 15:46] LABS: URINE SOURCE CLEAN CATCH
[2019-04-14 15:51] LABS: BILIRUBIN URINE NEGATIVE (NEGATIVE); BLOOD URINE NEGATIVE (NEGATIVE); COLOR YELLOW; GLUCOSE URINE NEGATIVE (NEGATIVE); KETONE URINE NEGATIVE (NEGATIVE); LEUKOCYTES URINE NEGATIVE (NEGATIVE); NITRITE URINE NEGATIVE (NEGATIVE); PH URINE 5.5; PROTEIN URINE NEGATIVE (NEGATIVE); SP GRAVITY URINE 1.015; TURBIDITY URINE CLEAR (CLEAR); UROBILINOGEN URINE NORMAL (NORMAL)
[2019-04-14 15:52] LABS: UR EPITHELIAL CELLS <10 /HPF (<10); URINE BACTERIA NEGATIVE /HPF; URINE RBC <10 /HPF (<10); URINE WBC <10 /HPF (<10)
[2019-04-14] MEDS: PEPCID IV SCH (20:59)
[2019-04-14] MEDS ORDERED: DESYREL PO SCH (21:00)
--- NOTE | 2019-04-15 04:35 | HISTORY AND PHYSICAL ---
ADDENDUM: Patient is a senior care resident who presented to the hospital with swelling of her face and lips. She had been in the ER recently with similar symptoms. We are going to admit her to the hospital, observe her overnight. Unsure etiology although she did take Bactrim and this may have been the cause. Further orders as needed. cc: Nahid Alonzo MD
[2019-04-15 05:45] LABS: HEMATOCRIT 36.9 % (37.0-47.0); HEMOGLOBIN 11.4 g/dL (12.0-16.0); MCH 24.5 PG (27-31); MCHC 30.9 g/dL (33-37); MCV 79.4 FL (81-99); MPV 8.7 FL (7.4-10.4); RBC 4.65 XMIL (4.2-5.4); RDW 14.9 % (11.5-14.5); WBC 13.37 X1000 (4.8-10.8)
[2019-04-15 05:54] LABS: AGAP 9; BUN 14 mg/dL (8-22); CALCIUM 8.4 mg/dL (8.8-10.2); CHLORIDE 108 mmol/L (98-107); COSMO 283; CREATININE 0.6 mg/dL (0.5-0.9); ESTIMATED GFR > 60; GLUCOSE 93 mg/dL (70-104); POTASSIUM 3.6 mmol/L (3.5-5.1); SODIUM 142 mmol/L (136-145); TCO2 25 mmol/L (25-35)
[2019-04-15 06:39] VITALS: BP 118/66
[2019-04-15] MEDS: HUMALOG (PARKWAY) SUBQ SCH (06:40)
[2019-04-15] MEDS ORDERED: GLUCOPHAGE PO SCH (08:00)
[2019-04-15] MEDS: PEPCID IV SCH (08:39)
[2019-04-15] MEDS: TRILEPTAL PO SCH (08:39)
[2019-04-15] MEDS: NS 1,000 ML IV SCH (08:39)
[2019-04-15] MEDS ORDERED: ZYPREXA ZYDIS PO SCH (09:00)
[2019-04-15] MEDS ORDERED: PEPCID PO SCH (09:00)
[2019-04-15] MEDS ORDERED: SOLU-MEDROL IV SCH (09:00)
[2019-04-15] MEDS ORDERED: CATAPRES PO SCH (09:00)
--- NOTE | 2019-04-17 02:28 | DISCHARGE SUMMARY ---
ADMISSION DATE: 04/14/2019 DISCHARGE DATE: 04/15/2019 DISCHARGE DIAGNOSIS: 1. Angioedema of undetermined origin, resolved. 2. Diabetes. 3. Hypertension. 4. Hyperlipidemia. 5. Polycystic ovary syndrome. 6. Bipolar with major depression. 7. Posttraumatic stress. CONSULTATIONS: None. PROCEDURES: None. BRIEF HOSPITAL COURSE: Patient was admitted to the hospital with angioedema of undetermined origin. On discharge, her symptoms have completely resolved. She currently is in no distress and therefore she will be discharged home. She is eating and drinking without any difficulty. No shortness of breath. DISPOSITION: The patient will be discharged home. She will follow up outpatient with treatment facility of choice. Discussed to keep a dietary log in case her symptoms return. TIME SPENT: Greater than 30 minutes was spent in total care. No changes were made on her diet, activity or exercise otherwise. cc: Nahid Alonzo MD
== END 2019-04-15 10:05 | disposition home or self-care (01) ==
LOC: P.ED 07:25 → P.MEDSURG 07:25
PROVIDERS: ADMIT Family Medicine